=== PATIENT | female | born 1995 | race Caucasian/White ===

== ENCOUNTER 2023-11-11 09:17 | Day surgery (SDC) | payer BC ==
[~2023-11-11 09:17] MED LIST: SODIUM CHLORIDE 0.9% 1,000 ML IV SCH
[2023-11-11] MEDS: SODIUM CHLORIDE 0.9% 1,000 ML IV ONE (09:29)
[2023-11-11 10:07] VITALS: BP 119/60; RESP 16; TEMP 97.8
[2023-11-11 15:47] VITALS: PULSE 88
--- NOTE | 2023-11-11 16:18 | P.EPPROC ---
- EP Procedure Note Electrophysiology Procedure Note: Diagnosis Recurrent presyncope Twelve-lead EKG shows sinus rhythm normal [place] narrow QRS normal ST segments normal QT interval Tilt table test per protocol Baseline heart rate 81 beats a minute, baseline blood pressure 106/57 mmHg Blood pressure remained stable Mild increase in heart rate between 96-100 beats a minute She felt cold and sweaty in waves No secondary neurocardiogenic phenomena When she was laid supine her heart rate normalized to 76 beats a minute Impression Normal twelve-lead EKG Orthostatic intolerance, mild
== END 2023-11-11 12:26 | disposition home or self-care (01) ==
LOC: CATHEP 09:17
PROVIDERS: ATTEND Internal Medicine Clinical Cardiac Electrophysiology
DX: R55 Syncope and collapse (principal); Z88.2 Allergy status to sulfonamides
CPT/HCPCS: 81025; 93660